=== PATIENT | male | born 1985 | race Caucasian/White ===

== ENCOUNTER 2023-10-21 22:03 | Emergency (ER) | payer OTHER ==
[~2023-10-21] VITALS: Ht 154.9 cm; Wt 72.6 kg
[2023-10-21 22:13] VITALS: BP_SYST 120; PULSE 86; RESP 16; TEMP 97.8; O2SAT 99
[2023-10-21] MEDS ORDERED: IBUPROFEN 600 MG TABLET PO ONE (22:30)
[2023-10-22] MEDS ORDERED: NAPR-1172 PO (01:11)
[2023-10-22 01:18] VITALS: BP_SYST 110; PULSE 76; RESP 16; TEMP 98.2; O2SAT 97
== END 2023-10-22 01:18 | disposition home or self-care (01) ==
LOC: SED 22:03
DX: S33.5XXA Sprain of ligaments of lumbar spine, initial encounter (principal); Z79.899 Other long term (current) drug therapy; V89.2XXA Person injured in unspecified motor-vehicle accident, traffic, initial encounter; Y93.89 Activity, other specified; Y92.89 Other specified places as the place of occurrence of the external cause; Y99.8 Other external cause status
CPT/HCPCS: 72100-TC; 73030; 99284